=== PATIENT | female | born 1990 | race Caucasian/White ===

== ENCOUNTER 2017-11-17 18:29 | Emergency (ER) | payer MEDICAID ==
[~2017-11-17] VITALS: Ht 154.9 cm; Wt 50.8 kg
[2017-11-17 18:49] VITALS: BP 128/78
--- NOTE | 2017-11-17 18:53 | NUR ---
PT AMBULATES WITH STEADY GAIT TO CHAIR D AT THIS TIME.
--- NOTE | 2017-11-17 18:55 | NUR ---
27 YO F BIB SELF W/ C/O SOLANO 03/29 X 3 WEEKS THAT IS ON HER FOREHEAD AND AT HER TEMPLES AND WORSENS WITH LIGHT/NOISE. REPORTS NAUSEA BUT DENIES VOMITING. PT DENIES INJURY TO NECK OR SHOULDERS. DENIES FEVER/CHILLS. REPORTS THAT SHE HAS NOT HAD ANY APPETITE CHANGES. PT A&O X 4. GCS 15. CMS INTACT. RR EVEN AND UNLABORED. LUNG SOUNDS CLEAR BILAT. PT IS SITTING IN BED, SPEAKS WITH CLEAR SPEECH AND IS RELAXED AT THIS TIME. ER MD SANTOYO NOTIFIED. PT NEEDS MET. WILL CONTINUE TO MONITOR.
--- NOTE | 2017-11-17 19:17 | NUR ---
Pt report given to SRIDHAR Dai. Transfer of care at this time.
--- NOTE | 2017-11-17 19:35 | NUR ---
PT SITTING IN CHAIR, STATES HEADACHE 10 AT THIS TIME, AA&OX4, C/O BLURRED VISION, PERRL, WILL CONTINUE TO MONITOR.
--- NOTE | 2017-11-17 20:09 | NUR ---
Dr. Zazueta evaluating patient.
[2017-11-17] MEDS ORDERED: KETOROLAC 30 MG/ML VIAL IM ONE (20:20)
--- NOTE | 2017-11-17 20:45 | NUR ---
Patient discharged with v/s stable. Written and verbal after care instructions given and explained. Patient alert, oriented and verbalized understanding of instructions. Ambulatory with steady gait. All questions addressed prior to discharge. ID band removed. Patient advised to follow up with PMD. Rx of fiorinal, keflex and ibuprofen given. Patient educated on indication of medication including possible reaction and side effects. Opportunity to ask questions provided and answered.
[2017-11-17 20:47] VITALS: BP 128/78
== END 2017-11-17 20:45 | disposition home or self-care (01) ==
LOC: MED 18:29
DX: N39.0 Urinary tract infection, site not specified (principal); G44.209 Tension-type headache, unspecified, not intractable
CPT/HCPCS: 81002; 87086; 96372; 99283; J1885

== ENCOUNTER 2022-03-27 11:55 | Emergency (ER) | payer MEDICAID, OTHER ==
[~2022-03-27] VITALS: Ht 157.5 cm; Wt 65.8 kg
[2022-03-27 11:58] VITALS: BP 148/80
[2022-03-27] MEDS ORDERED: IBUPROFEN 800 MG TAB PO ONE (13:20)
[2022-03-27] MEDS ORDERED: ONDANSETRON 4 MG ODT PO ONE (13:25)
[2022-03-27 13:54] LABS: BASOPHILS # (AUTO) 0.1 K/uL (0.00-0.22); BASOPHILS % (AUTO) 1.1 % (0.0-2.0); EOSINOPHILS # (AUTO) 0.1 K/uL (0-0.4); EOSINOPHILS % (AUTO) 1.1 % (0.0-4.0); HEMATOCRIT 39.4 % (36-48); HEMOGLOBIN 13.7 g/dL (12.0-16.0); MEAN CORPUSCULAR HEMOGLOBIN 29 pg (27-31); MEAN CORPUSCULAR HGB CONC 35 g/dL (33-37); MEAN CORPUSCULAR VOLUME 84.3 fL (80-94); MONOCYTES # (AUTO) 0.6 K/uL (0.8-1.0); MONOCYTES % (AUTO) 8.9 % (1.7-9.3); NEUTROPHILS # (AUTO) 4.5 K/uL (1.8-7.7); NEUTROPHILS % (AUTO) 60.9 % (42.2-75.2); PLATELET COUNT (AUTO) 208 K/uL (140-450); RED BLOOD CELL COUNT(AUTO) 4.67 MIL/uL (4.20-5.40); WHITE BLOOD COUNT (AUTO) 7.3 K/uL (4.8-10.8)
[2022-03-27 14:47] LABS: ANION GAP 15.3 (8-16); CARBON DIOXIDE 23.1 mmol/L (21-32); CREATININE 0.8 mg/dL (0.6-1.3); POTASSIUM 3.4 mmol/L (3.5-5.1)
[2022-03-27] MEDS ORDERED: IBUP-1801 PO (14:58)
[2022-03-27 15:07] VITALS: BP 128/80
== END 2022-03-27 15:07 | disposition home or self-care (01) ==
LOC: MED 11:55
DX: R51.9 Headache, unspecified (principal); R03.0 Elevated blood-pressure reading, without diagnosis of hypertension; R11.0 Nausea; Z79.1 Long term (current) use of non-steroidal anti-inflammatories (NSAID)
CPT/HCPCS: 36415; 80048; 81002; 81025; 85025; 99283; Q0162